=== PATIENT | female | born 1980 | race Caucasian/White ===

== ENCOUNTER 2017-05-08 04:23 | Emergency (ER) | payer SELFPAY ==
[~2017-05-08] VITALS: Ht 160 cm; Wt 77.0 kg
[~2017-05-08 04:23] MED LIST: BACT800T5 PO; CEPH500C3 PO; CITA20 PO; IBUP800T23 PO; WELL200T PO; ZOVI800T13 PO
[2017-05-08 04:26] VITALS: BP 100/68; PULSE 86; RESP 16; TEMP 98; O2SAT 98
[2017-05-08 05:03] LABS: AUTOMATED NEUTROPHIL # 4.6 TH/MM3 (1.8-7.7); BASOPHIL # 0.1 TH/MM3 (0-0.2); BASOPHIL % 0.6 % (0.0-2.0); EOSINOPHIL # 0.2 TH/MM3 (0-0.4); EOSINOPHIL % 2.3 % (0.0-4.0); HEMATOCRIT 39.8 % (35.0-46.0); HEMO FLAGS DIFF FINAL; LYMPH % 36.7 % (9.0-44.0); LYMPHOCYTE # 3.2 TH/MM3 (1.0-4.8); MEAN CELL VOLUME 90.3 FL (80.0-100.0); MEAN CORPUSCULAR HEMOGLOBIN 30.7 PG (27.0-34.0); MONO % 7.2 % (0.0-8.0); NEUT % 53.2 % (16.0-70.0); PLATELET COUNT 166 TH/MM3 (150-450); WHITE BLOOD COUNT 8.7 TH/MM3 (4.0-11.0)
[2017-05-08] MEDS ORDERED: METOCLOPRAMIDE HCL 10 MG/2 ML VIAL IV PUSH ONE (05:15)
[2017-05-08] MEDS ORDERED: diphenhydrAMINE HCL 50 MG/ML VIAL IV PUSH ONE (05:15)
[2017-05-08] MEDS ORDERED: SODIUM CHLOR 0.9% 1000 ML INJ 1,000 ML IV ONE (05:15)
[2017-05-08 05:30] LABS: BLOOD, URINE MOD (NEG); COMMENT (UR) CULT NOT INDICATED; CULTURE IF INDICATED CULT NOT INDICATED; GLUCOSE,URINE NEG (NEG); KETONE, URINE NEG (NEG); MUCUS URINE FEW /lpf (OCC); NITRITE,URINE NEG (NEG); SQUAMOUS EPITHELIAL CELL URINE 1 /hpf (0-5); URINE COLOR YELLOW (YELLW/STRAW)
[2017-05-08 05:30] LABS: ANION GAP 6 MEQ/L (5-15); AST (GOT) 18 U/L (15-37); BICARBONATE 25.9 MEQ/L (21.0-32.0); BLOOD UREA NITROGEN 12 MG/DL (7-18); CHLORIDE 110 MEQ/L (98-107); GLOMERULAR FILTRATION RATE 94 ML/MIN (>89); POTASSIUM 3.7 MEQ/L (3.5-5.1); SODIUM (NA) 142 MEQ/L (136-145)
--- NOTE | 2017-05-08 05:34 | PD ---
HPI Chief Complaint: Headache Time Seen by Provider: 05:05 Travel History International Travel<30 days: No Contact w/Intl Traveler<30days: No Traveled to known affect area: No History of Present Illness HPI 37-year-old female patient presents to the ER today, states that she has been trying to lose weight, purposely not eating, try to make herself vomit for several days when she had a syncopal episode on Wednesday, fell against the wall and hit her head, since then has been having dizziness, 10 out 10 headaches, photophobia, and nauseous and vomiting. She denies any fevers, diarrhea, or any other symptoms. She denies any other injuries. Modifying Factors: None Associated Signs & Symptoms: Nausea, vomiting, syncope, headache Risk Factors: None PFSH Past Medical History Hx Anticoagulant Therapy: No Bipolar Disorder: Yes Anxiety: Yes Depression: Yes (POST ) Cardiovascular Problems: No Chemotherapy: No Cerebrovascular Accident: No Diabetes: No Diminished Hearing: No Headaches: Yes Respiratory: No Immunizations Current: Yes Tetanus Vaccination: Unknown Influenza Vaccination: No ?: Not LMP: 05/07/17 : 2 Para: 2 Miscarriage: 0 : 0 Past Surgical History Section: Yes Hysterectomy: No Tonsillectomy: Yes Social History Alcohol Use: No Tobacco Use: Yes (2 PPW) Substance Use: No Allergies-Medications (Allergen,Severity, Reaction): Coded Allergies: No Known Allergies (Verified , 05/08/17) Reported Meds & Prescriptions Reported Meds & Active Scripts Active No Active Prescriptions or Reported Medications Review of Systems Except as stated in HPI: all other systems reviewed are Neg Physical Exam Narrative GENERAL: Well-developed young white female patient currently in moderate distress. Awake and oriented 3. SKIN: Focused skin assessment warm/dry. HEAD: Atraumatic. Normocephalic. EYES: Pupils equal and round. No scleral icterus. No injection or drainage. ENT: No nasal bleeding or discharge. Mucous membranes pink and moist. NECK: Trachea midline. No JVD. CARDIOVASCULAR: Regular rate and rhythm. No murmur appreciated. RESPIRATORY: No accessory muscle use. Clear to auscultation. Breath sounds equal bilaterally. GASTROINTESTINAL: Abdomen soft, non-tender, nondistended. Hepatic and splenic margins not palpable. MUSCULOSKELETAL: No obvious deformities. No clubbing. No cyanosis. No edema. NEUROLOGICAL: Awake and alert. No obvious cranial nerve deficits. Motor grossly within normal limits. Normal speech. PSYCHIATRIC: Appropriate mood and affect; insight and judgment normal. Data Data Last Documented VS Vital Signs Date Time Temp Pulse Resp B/P Pulse Ox O2 Delivery O2 Flow Rate FiO2 05/08/17 04:26 98.0 86 16 100/68 98 Orders Complete Blood Count With Diff (05/08/17 04:37) Comprehensive Metabolic Panel (05/08/17 04:37) Urinalysis - C+S If Indicated (05/08/17 04:37) Ct Brain W/O Iv Contrast(Rout) (05/08/17 04:37) Ed Urine Pregnancytest Poc (05/08/17 04:37) Sodium Chlor 0.9% 1000 Ml Inj (Ns 1000 M (05/08/17 05:15) Metoclopramide Inj (Reglan Inj) (05/08/17 05:15) Diphenhydramine Inj (Benadryl Inj) (05/08/17 05:15) Labs Laboratory Tests Test 05/08/17 05/08/17 04:40 04:45 White Blood Count 8.7 TH/MM3 Red Blood Count 4.40 MIL/MM3 Hemoglobin 13.5 GM/DL Hematocrit 39.8 % Mean Corpuscular Volume 90.3 FL Mean Corpuscular Hemoglobin 30.7 PG Mean Corpuscular Hemoglobin 34.0 % Concent Red Cell Distribution Width 14.0 % Platelet Count 166 TH/MM3 Mean Platelet Volume 9.9 FL Neutrophils (%) (Auto) 53.2 % Lymphocytes (%) (Auto) 36.7 % Monocytes (%) (Auto) 7.2 % Eosinophils (%) (Auto) 2.3 % Basophils (%) (Auto) 0.6 % Neutrophils # (Auto) 4.6 TH/MM3 Lymphocytes # (Auto) 3.2 TH/MM3 Monocytes # (Auto) 0.6 TH/MM3 Eosinophils # (Auto) 0.2 TH/MM3 Basophils # (Auto) 0.1 TH/MM3 CBC Comment DIFF FINAL Differential Comment Sodium Level 142 MEQ/L Potassium Level 3.7 MEQ/L Chloride Level 110 MEQ/L Carbon Dioxide Level 25.9 MEQ/L Anion Gap 6 MEQ/L Blood Urea Nitrogen 12 MG/DL Creatinine 0.71 MG/DL Estimat Glomerular Filtration 94 ML/MIN Rate Random Glucose 89 MG/DL Calcium Level 8.5 MG/DL Total Bilirubin 0.4 MG/DL Aspartate Amino Transf 18 U/L (AST/SGOT) Alanine Aminotransferase 19 U/L (ALT/SGPT) Alkaline Phosphatase 52 U/L Total Protein 6.8 GM/DL Albumin 3.6 GM/DL Urine Color YELLOW Urine Turbidity CLEAR Urine pH 7.0 Urine Specific [place] 1.019 Urine Protein TRACE mg/dL Urine Glucose (UA) NEG mg/dL Urine Ketones NEG mg/dL Urine Occult Blood MOD Urine Nitrite NEG Urine Bilirubin NEG Urine Urobilinogen LESS THAN 2.0 MG/DL Urine Leukocyte Esterase TRACE Urine RBC /hpf Urine WBC LESS THAN 1 /hpf Urine Squamous Epithelial 1 /hpf Cells Urine Mucus FEW /lpf Microscopic Urinalysis Comment CULT NOT INDICATED MDM Medical Decision Making Medical Screen Exam Complete: Yes Emergency Medical Condition: Yes Medical Record Reviewed: Yes Interpretation(s) Laboratory Tests Test 05/08/17 05/08/17 04:40 04:45 Chloride Level 110 MEQ/L (98-107) Urine Occult Blood MOD (NEG) Urine Leukocyte Esterase TRACE (NEG) Urine Mucus FEW /lpf (OCC) Last [address] 05/08/17 0437 Signed Impressions: Service Date/Time: Wednesday, May 08, 2017 05:14 - CONCLUSION: Normal examination. Alex Kim MD Differential Diagnosis Headache, nausea and vomiting, dizzinessacute intercranial injuries versus migraine headaches versus concussion versus dehydration versus metabolic issues Narrative Course Lab work did not show significant metabolic issues. Vital signs are stable. CAT scan did not show any signs of acute intracranial processes. I suspect that she has a concussion considering the story. Patient was given IV fluids, Reglan, and Benadryl in the ER. On reevaluation at 6 AM, she is feeling much improved. Neck is supple and she has not been running fevers, I do not suspect meningitis in this case. My plan would be to release her with symptomatic relief for nausea and vomiting and headache. Follow-up with primary care physician closely. Return for any worsening in headaches, vomiting, or new symptoms as needed. The plan has been discussed with her and she states understanding. Diagnosis Primary Impression: Concussion Med/Other Pt SpecificInfo: Prescription(s) given Scripts Acetaminophen (Tylenol)325 Mg [id number] Mg PO Q6H PRN (PAIN SCALE 1 TO 10) #20 TAB Ref 0 Prov:Ej Garnica MD 05/08/17 Metoclopramide (Reglan)10 Mg Tab10 Mg PO QID PRN (NAUSEA OR VOMITING) #15 TAB Ref 0 Prov:Ej Garnica MD 05/08/17 Disposition: 01 DISCHARGE HOME Condition: Stable Ej Garnica MD May 08, 2017 05:34
[2017-05-08 05:40] LABS: ALKALINE PHOSPHATASE 52 U/L (45-117); ALT (GPT) 19 U/L (10-53); TOTAL BILIRUBIN ADULT 0.4 MG/DL (0.2-1.0)
--- NOTE | 2017-05-08 05:48 | RADRPT ---
EXAM DATE/TIME: 05/08/2017 05:14 [facility] COMPARISON: No previous studies available for comparison. INDICATIONS : Cephalgia. RADIATION DOSE: 39.34 CTDIvol (mGy) MEDICAL HISTORY : None SURGICAL HISTORY : None. ENCOUNTER: Initial ACUITY: 1 day PAIN SCALE: 8/10 LOCATION: cranial TECHNIQUE: Multiple contiguous axial images were obtained of the head. Using automated exposure control and adj ustment of the mA and/or kV according to patient size, radiation dose was kept as low as reasonably a chievable to obtain optimal diagnostic quality images. DICOM format image data is available electro nically for review and comparison. FINDINGS: CEREBRUM: The ventricles are normal for age. No evidence of midline shift, mass lesion, hemorrhage or acute in farction. No extra-axial fluid collections are seen. POSTERIOR FOSSA: The cerebellum and brainstem are intact. The 4th ventricle is midline. The cerebellopontine angle i s unremarkable. EXTRACRANIAL: The visualized portion of the orbits is intact. SKULL: The calvaria is intact. No evidence of skull fracture. CONCLUSION: Normal examination. Alex Kim MD on May 08, 2017 at 5:46 Board Certified Radiologist. This report was verified electronically.
[2017-05-08] MEDS ORDERED: TYLE325T PO (06:10)
[2017-05-08] MEDS ORDERED: REGL10TA5 PO (06:10)
== END 2017-05-08 06:23 | disposition home or self-care (01) ==
LOC: NEPE 04:23
DX: S06.0X0A Concussion without loss of consciousness, initial encounter (principal); F31.9 Bipolar disorder, unspecified; F41.9 Anxiety disorder, unspecified; W22.01XA Walked into wall, initial encounter
CPT/HCPCS: 70450; 80053; 81001; 84703; 85025; 96374; 96375; 99285; J1200; J2765; J7030

== ENCOUNTER 2017-08-24 15:29 | Emergency (ER) | payer MEDICAID, OTHER ==
[~2017-08-24 15:29] MED LIST changes: -BACT800T5 PO; -CEPH500C3 PO; -CITA20 PO; -IBUP800T23 PO; +REGL10TA5 PO; +TYLE325T PO; -WELL200T PO; -ZOVI800T13 PO
[2017-08-24 15:31] VITALS: BP 126/86; PULSE 80; RESP 16; TEMP 98; O2SAT 98
--- NOTE | 2017-08-24 16:59 | PD ---
HPI Chief Complaint: Cold / Flu Symptoms Time Seen by Provider: 16:44 Travel History International Travel<30 days: No Contact w/Intl Traveler<30days: No Traveled to known affect area: No History of Present Illness HPI 37-year-old female presents to the emergency department complaining of a cough and cold symptoms for 3 days. States that she has felt feverish and has a constant aching headache. Also says that she has had a sore throat especially after vomiting. She also has body aches. Describes her cough as sometimes productive with green or clear sputum. She does smoke. She states that she has had some increased chest tightness when walking that associated with mild shortness of breath. Patient denies radiation of pain. Patient denies abdominal pain. States that she does have some burning when she urinates but denies any other symptoms. Denies nausea, vomiting, diarrhea. PFSH Past Medical History Hx Anticoagulant Therapy: No Bipolar Disorder: Yes Anxiety: Yes Depression: Yes (POST ) Cardiovascular Problems: No Chemotherapy: No Cerebrovascular Accident: No Diabetes: No Diminished Hearing: No Headaches: Yes Respiratory: No Immunizations Current: Yes ?: Unknown : 2 Para: 2 Miscarriage: 0 : 0 Past Surgical History Section: Yes Hysterectomy: No Tonsillectomy: Yes Social History Alcohol Use: No Tobacco Use: Yes (2 PPW) Substance Use: No Allergies-Medications (Allergen,Severity, Reaction): Coded Allergies: No Known Allergies (Verified , 05/08/17) Reported Meds & Prescriptions Reported Meds & Active Scripts Active Bactrim DS (Sulfamethoxazole-Trimethoprim) 800-160 Mg Tab 1 Tab PO BID Tylenol (Acetaminophen) 325 Mg Tab 650 Mg PO Q6H PRN Reglan (Metoclopramide HCl) 10 Mg Tab 10 Mg PO QID PRN Review of Systems Except as stated in HPI: all other systems reviewed are Neg Physical Exam Narrative GENERAL: Well-nourished, well-developed patient. SKIN: Focused skin assessment warm/dry. HEAD: Normocephalic. EYES: No scleral icterus. No injection or drainage. NECK: Supple, trachea midline. No JVD or lymphadenopathy. Nose: Scant clear rhinorrhea THROAT: No pharyngeal injection, exudates, or tonsillar hypertrophy. Airway is patent. Potentially post nasal drip CARDIOVASCULAR: Regular rate and rhythm without murmurs, gallops, or rubs. RESPIRATORY: Breath sounds equal bilaterally. No accessory muscle use. GASTROINTESTINAL: Abdomen soft, non-tender, nondistended. MUSCULOSKELETAL: No cyanosis, or edema. BACK: Nontender without obvious deformity. No CVA tenderness. Data Data Last Documented VS Vital Signs Date Time Temp Pulse Resp B/P (MAP) Pulse Ox O2 Delivery O2 Flow Rate FiO2 08/24/17 16:38 Room Air 08/24/17 15:31 98.0 80 16 126/86 (99) 98 Orders Orders Influenzae A/B Antigen (08/24/17 15:55) Urinalysis - C+S If Indicated (08/24/17 15:55) Gc And Chlamydia Pcr (08/24/17 15:55) Ed Urine Pregnancytest Poc (08/24/17 15:55) Urine Culture (08/24/17 16:40) Chest, Pa & Lat (08/24/17 ) Ed Discharge Order (08/24/17 18:49) Labs Laboratory Tests Test 08/24/17 16:40 Urine Color YELLOW Urine Turbidity CLEAR Urine pH 6.0 Urine Specific [place] 1.019 Urine Protein NEG mg/dL Urine Glucose (UA) NEG mg/dL Urine Ketones NEG mg/dL Urine Occult Blood NEG Urine Nitrite NEG Urine Bilirubin NEG Urine Urobilinogen LESS THAN 2.0 MG/DL Urine Leukocyte Esterase LARGE Urine RBC 1 /hpf Urine WBC 10 /hpf Urine Squamous Epithelial Cells 1 /hpf Urine Bacteria OCC /hpf Microscopic Urinalysis Comment CULTURE INDICATED MDM Medical Decision Making Medical Screen Exam Complete: Yes Emergency Medical Condition: Yes Differential Diagnosis Influenza virus versus viral syndrome versus upper respiratory infection Narrative Course 37-year-old female presents to the emergency department complaining of a cough and cold symptoms for 3 days. States that she has felt feverish and has a constant aching headache. Also says that she has had a sore throat especially after vomiting she also has body aches. Describes her cough as sometimes productive with green or clear sputum. She does smoke. She states that she has had some increased chest tightness when walking that associated with mild shortness of breath. Patient denies radiation of pain. Patient denies abdominal pain. States that she does have some burning when she urinates but denies any other symptoms. Denies nausea, vomiting, diarrhea. Vital signs stable Physical exam demonstrates upper respiratory infection essentially unremarkable. Chest x-ray ordered secondary to patient's complaint of chest discomfort with increased activity and cough. Patient has an upper respiratory infection. Patient also has a urinary tract infection. We'll prescribe Bactrim as this will likely take care of any upper respiratory bacteria and urinary tract infection. Patient to take Tylenol and Motrin per package instructions for symptom relief Return to the emergency department further treatment and evaluation if worsening. Diagnosis Primary Impression: Urinary tract infection Qualified Codes: N30.00 - Acute cystitis without hematuria Additional Impression: Viral syndrome Referrals: Primary Care Physician Additional Instructions: Take medications as prescribed. Ensure a nutritious diet and plenty of fluid intake. If your symptoms persist or worsen return to the emergency department Scripts Sulfamethoxazole-Trimethoprim (Bactrim DS) 800-160 Mg Tab 1 TAB PO BID for Infection, #14 TAB 0 Refills Prov: Theresa Carrera MD 08/24/17 Disposition: 01 DISCHARGE HOME Condition: Stable Kassi Ochoa Aug 24, 2017 16:59
[2017-08-24 17:25] LABS: BACTERIA, URINE OCC /hpf; BLOOD, URINE NEG (NEG); COMMENT (UR) CULTURE INDICATED; CULTURE IF INDICATED CULTURE INDICATED; GLUCOSE,URINE NEG (NEG); KETONE, URINE NEG (NEG); NITRITE,URINE NEG (NEG); SQUAMOUS EPITHELIAL CELL URINE 1 /hpf (0-5); URINE COLOR YELLOW (YELLW/STRAW)
[2017-08-24] MEDS ORDERED: BACT800T5 PO (17:47)
--- NOTE | 2017-08-24 18:38 | RADRPT ---
EXAM DATE/TIME: 08/24/2017 18:01 [facility] COMPARISON: No previous studies available for comparison. INDICATIONS : Cough, congestion, shortness of breath, fever. MEDICAL HISTORY : Smoker. SURGICAL HISTORY : None. ENCOUNTER: Initial ACUITY: 3 days PAIN SCORE: 5/10 LOCATION: Bilateral chest FINDINGS: PA and lateral views of the chest demonstrate the lungs to be symmetrically aerated without evidence of mass, infiltrate or effusion. The cardiomediastinal contours are unremarkable. There is a mild le vocurvature of the lower thoracic spine. CONCLUSION: No acute disease. Benton Leroy MD on August 24, 2017 at 18:36 Board Certified Radiologist. This report was verified electronically.
== END 2017-08-24 19:02 | disposition home or self-care (01) ==
LOC: NEPK 15:29
DX: N39.0 Urinary tract infection, site not specified (principal); B96.89 Other specified bacterial agents as the cause of diseases classified elsewhere; B34.9 Viral infection, unspecified; R07.89 Other chest pain; F31.9 Bipolar disorder, unspecified; F41.9 Anxiety disorder, unspecified; F17.200 Nicotine dependence, unspecified, uncomplicated
CPT/HCPCS: 71020; 81001; 84703; 87086; 87491; 87591; 87804; 99284